=== PATIENT | female | born 1955 | race Caucasian/White ===

== ENCOUNTER 2018-07-27 23:27 | Emergency (ER) | payer MEDICARE ==
[~2018-07-27] VITALS: Ht 162.6 cm; Wt 88.5 kg
[2018-07-27 23:30] VITALS: BP_SYST 138
--- NOTE | 2018-07-27 23:41 | NUR ---
Pt c/o difficulty breathing, sore thoat with cough since this weekend. Pt AAOX4, even and non-labored respirations, SPO2 99% RA. Denies C/P or SOB at this time.
--- NOTE | 2018-07-27 23:41 | NUR ---
Patient to ER bed 3 to gown for evaluation. Side rails up.
--- NOTE | 2018-07-27 23:50 | NUR ---
Dr. Delacruz at bedside.
[2018-07-28] MEDS ORDERED: IPRATROPIUM/ALBUTEROL SULFATE 3 ML AMPUL.NEB (DUONEB) INH ONE (01:15)
[2018-07-28] MEDS ORDERED: methylPREDNISolone SOD SUCC/PF 62.5 MG/ML VIAL IVP ONE (01:15)
--- NOTE | 2018-07-28 01:15 | NUR ---
X-ray at bedside.
[2018-07-28] MEDS ORDERED: methylPREDNISolone SOD SUCC/PF 62.5 MG/ML VIAL IM ONE (01:30)
--- NOTE | 2018-07-28 01:38 | NUR ---
RT at bedside. Lissette tx in progress.
--- NOTE | 2018-07-28 02:00 | NUR ---
Pt verbalizes improvement in respirations. No needs verbalized at this time. Family member at bedside.
[2018-07-28 02:17] LABS: BASOPHILS % (AUTO) 0.5 % (0.0-2.0); EOSINOPHILS # (AUTO) 0.1 K/uL (0.0-0.4); EOSINOPHILS % (AUTO) 1.9 % (0.0-4.0); HEMATOCRIT 43.8 % (36-48); HEMOGLOBIN 14.6 g/dL (12.0-16.0); LYMPHOCYTES # (AUTO) 0.9 K/uL (1.0-5.5); LYMPHOCYTES % (AUTO) 11.8 % (20.5-51.5); MEAN CORPUSCULAR HEMOGLOBIN 32 pg (27-31); MEAN CORPUSCULAR HGB CONC 33 % (32-36); MEAN CORPUSCULAR VOLUME 95 fL (79.0-98.0); MONOCYTES # (AUTO) 0.6 K/uL (0.0-1.0); MONOCYTES % (AUTO) 7.8 % (1.7-9.3); NEUTROPHILS # (AUTO) 6.3 K/uL (1.8-7.7); PLATELET COUNT (AUTO) 227 K/uL (130-430); RED BLOOD CELL COUNT(AUTO) 4.61 MIL/uL (4.2-6.2); RED CELL DISTRIBUTION WIDTH 13.1 % (9.0-15.0); WHITE BLOOD COUNT (AUTO) 7.9 K/uL (4.8-10.8)
[2018-07-28] MEDS ORDERED: AZITHROMYCIN 250 MG TABLET PO ONE (02:30)
[2018-07-28 02:35] LABS: ALBUMIN 3.2 g/dL (3.4-4.8); CALCIUM 9.3 mg/dL (8.4-11.0); CREATININE 0.92 mg/dL (0.55-1.30); POTASSIUM 3.3 mmol/L (3.5-5.1); TOTAL BILIRUBIN 0.9 mg/dL (0.0-1.0)
--- NOTE | 2018-07-28 03:00 | NUR ---
No needs verbalized at this time. Family member at bedside.
[2018-07-28 03:32] VITALS: BP_SYST 134
--- NOTE | 2018-07-28 03:32 | NUR ---
Patient given written and verbal discharge instructions and verbalizes understanding. ER MD discussed with patient the results and treatment provided. Patient in stable condition. ID arm band removed. Rx of Zithromax and Prednisone given. Patient educated on pain management and to follow up with PMD. Pain Scale 0/10. Opportunity for questions provided and answered. Medication side effect fact sheet provided.
== END 2018-07-28 03:32 | disposition home or self-care (01) ==
LOC: SED 23:27
DX: J44.1 Chronic obstructive pulmonary disease with (acute) exacerbation (principal); F17.200 Nicotine dependence, unspecified, uncomplicated; Z71.6 Tobacco abuse counseling
CPT/HCPCS: 36415; 71045; 80053; 84484; 85025; 94640; 99284; J2930; J7620; Q0144